=== PATIENT | male | born 1935 | race Caucasian/White ===

== ENCOUNTER 2018-04-22 00:03 | Emergency (ER) | payer MEDICARE | END 2018-04-22 01:05 | disposition home or self-care (01) | LOC: M ED 00:03 | DX: N50.1 Vascular disorders of male genital organs (principal); N50.811 Right testicular pain; I48.91 Unspecified atrial fibrillation; E03.9 Hypothyroidism, unspecified; K21.9 Gastro-esophageal reflux disease without esophagitis; N40.0 Benign prostatic hyperplasia without lower urinary tract symptoms; Z79.899 Other long term (current) drug therapy; Z79.01 Long term (current) use of anticoagulants; Z87.891 Personal history of nicotine dependence | CPT/HCPCS: 99282 ==

== ENCOUNTER 2018-09-09 09:56 | Emergency (ER) | payer MEDICARE ==
[~2018-09-09] VITALS: Ht 167.6 cm; Wt 90.9 kg
[~2018-09-09 09:56] MED LIST: DORZ2OPD OP; FINA5TAB2 PO; GABA-1171 PO; LASI40TA9 PO; LATA5OPD OP; OMEP20CA3 PO; PRAV80TA2 PO
[2018-09-09] MEDS ORDERED: PRAV1TAB39 (10:08)
[2018-09-09] MEDS ORDERED: TENO1TAB5 (10:08)
[2018-09-09] MEDS ORDERED: DORZ2SOL5 OP (10:08)
[2018-09-09] MEDS ORDERED: COUM2.5T17 PO (10:08)
[2018-09-09] MEDS ORDERED: XALA0.007 (10:08)
[2018-09-09 10:56] VITALS: BP 110/72
== END 2018-09-09 10:57 | disposition home or self-care (01) ==
LOC: M ED 09:56
DX: M13.0 Polyarthritis, unspecified (principal); I48.91 Unspecified atrial fibrillation; K21.9 Gastro-esophageal reflux disease without esophagitis; Z79.01 Long term (current) use of anticoagulants; Z79.899 Other long term (current) drug therapy

== ENCOUNTER → 2018-09-15 | Outpatient (REF) | payer MEDICARE ==
[~2018-09-15] MED LIST changes: +COUM2.5T17 PO; +DORZ2SOL5 OP; +PRAV1TAB39; +TENO1TAB5; +XALA0.007
[2018-09-15 14:05] LABS: C REACTIVE PROTEIN QUANTITATIV 6.71 MG/DL (0.00-0.30); RHEUMATOID FACTOR QUANT < 10.0 IU/ML (<15.0)
== END ==
LOC: M LAB REF 13:42
PROVIDERS: ATTEND Internal Medicine
DX: M79.641 Pain in right hand (principal); M79.642 Pain in left hand

== ENCOUNTER 2020-01-01 13:25 | Emergency (ER) | payer MEDICARE ==
[~2020-01-01] VITALS: Ht 167.6 cm; Wt 97.4 kg
[~2020-01-01 13:25] MED LIST changes: +LATA0.0013 OP; -LATA5OPD OP; +OMEP1CAP73 PO; -OMEP20CA3 PO; -TENO1TAB5; +TENO1TAB5 PO
[2020-01-01] MEDS ORDERED: WARF-18 PO (13:39)
--- NOTE | 2020-01-01 14:34 | REP ---
Portable chest x-ray: Single view. History: Dyspnea. Comparison chest x-ray: November 03, 2015. Findings: Monitoring electrodes overlie the chest. Mild cardiomegaly is observed unchanged. Pulmonary vasculature is not increased. The lungs are well inflated and clear. The pleural angles are sharp. The thoracic aorta is calcific and somewhat tortuous. Impression: Mild cardiomegaly. Otherwise no acute disease. Electronically Signed by Benny Lujan MD 01/01/2020 02:25 P
[2020-01-01 15:06] LABS: BASO % 0.5 % (0.0-1.0); EOS # 0.2 10^3/uL (0.0-0.5); EOS % 3.1 % (0.0-3.0); HEMATOCRIT 42.6 % (42.0-52.0); HEMOGLOBIN 13.8 g/dl (13.5-17.5); LYMPH # 1.8 10^3/uL (1.5-5.0); LYMPH % 28.7 % (24.0-44.0); MEAN CORPUSCULAR HEMOGLOBIN 33.6 pg (27.0-33.0); MEAN CORPUSCULAR HGB CONC 32.4 g/dl (32.0-36.5); MEAN CORPUSCULAR VOLUME 103.6 fl (80.0-96.0); MONO # 0.6 10^3/uL (0.0-0.8); MONO % 8.6 % (0.0-5.0); NEUTROPHILS # 3.8 10^3/uL (1.5-8.5); NEUTROPHILS % 58.9 % (36.0-66.0); PLATELET COUNT, AUTOMATED 204 10^3/uL (150-450); RED BLOOD COUNT 4.11 10^6/uL (4.30-6.10); WHITE BLOOD COUNT 6.4 10^3/uL (4.0-10.0)
[2020-01-01 15:35] LABS: BLOOD UREA NITROGEN 19 MG/DL (7-18); CALCIUM LEVEL 8.6 MG/DL (8.8-10.2); CARBON DIOXIDE LEVEL 31 MEQ/L (21-32); CHLORIDE LEVEL 106 MEQ/L (98-107); CK-MB VALUE MASS 3.3 NG/ML (<3.6); CPK CREATINE PHOSPHOKINASE 181 U/L (39-308); CREATININE FOR GFR 0.79 MG/DL (0.70-1.30); GLOMERULAR FILTRATION RATE > 60.0 (>35); GLUCOSE, FASTING 83 MG/DL (70-100); MAGNESIUM LEVEL 2.2 MG/DL (1.8-2.4); MB/CK RELATIVE INDEX 1.82 (< OR =4); NT-PRO BNP 1592 PG/ML (<450); SODIUM LEVEL 137 MEQ/L (136-145); TROPONIN I < 0.02 NG/ML (< 0.10)
[2020-01-01] MEDS ORDERED: FUROSEMIDE 40MG/4ML VIAL (J1940) IV ONE (15:45)
[2020-01-01 15:47] LABS: INR 2.66; PROTHROMBIN TIME 28.2 SECONDS (11.8-14.0)
[2020-01-01 17:45] VITALS: BP 133/78
[2020-01-01] MEDS ORDERED: [UNRECOGNIZED DRUG - OTHER] EXT (18:16)
--- NOTE | 2020-01-01 20:46 | ECGEPIP ---
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
== END 2020-01-01 18:44 | disposition home or self-care (01) ==
LOC: M ED 13:25
DX: R60.9 Edema, unspecified (principal); R39.9 Unspecified symptoms and signs involving the genitourinary system; N40.1 Benign prostatic hyperplasia with lower urinary tract symptoms; E11.9 Type 2 diabetes mellitus without complications; I48.91 Unspecified atrial fibrillation; I11.9 Hypertensive heart disease without heart failure; Z79.01 Long term (current) use of anticoagulants; Z79.899 Other long term (current) drug therapy
CPT/HCPCS: 71045; 80048; 82550; 82553; 83735; 83880; 84484; 85025; 85610; 93005; 93041; 94760; 96374; 99285; J1940

== ENCOUNTER → 2021-08-24 | Outpatient (CLI) | payer MEDICARE ==
[~2021-08-24] MED LIST changes: +WARF-18 PO; +[UNRECOGNIZED DRUG - OTHER] EXT
== END ==
LOC: M WUC 11:40
PROVIDERS: ATTEND Nurse Practitioner Adult Health
DX: R06.2 Wheezing (principal)

== ENCOUNTER → 2022-06-11 | Outpatient (REF) | payer MEDICARE ==
[2022-06-11 18:00] LABS: FOLATE 14.9 NG/ML (>5.4)
== END ==
LOC: M LAB REF 16:08
PROVIDERS: ATTEND Internal Medicine
DX: R41.3 Other amnesia (principal)

== ENCOUNTER → 2023-03-26 | Outpatient (REF) | payer MEDICARE, MEDICAID | LOC: M LAB REF 16:40 | PROVIDERS: ATTEND Internal Medicine | DX: N39.0 Urinary tract infection, site not specified (principal) ==

== ENCOUNTER 2023-04-21 18:10 | Emergency (ER) | payer MEDICARE, MEDICAID ==
[~2023-04-21] VITALS: Ht 167.6 cm; Wt 84.7 kg
[2023-04-21] MEDS ORDERED: XARE20TA (18:20)
[2023-04-21 19:45] LABS: BASO % 0.4 % (0.0-1.0); EOS # 0.2 10^3/uL (0.0-0.5); EOS % 3.2 % (0.0-3.0); HEMATOCRIT 43.7 % (42.0-52.0); HEMOGLOBIN 14.8 g/dl (13.5-17.5); LYMPH # 2.3 10^3/uL (1.5-5.0); MEAN CORPUSCULAR HEMOGLOBIN 34.3 pg (27.0-33.0); MEAN CORPUSCULAR HGB CONC 33.9 g/dl (32.0-36.5); MEAN CORPUSCULAR VOLUME 101.4 fl (80.0-96.0); MONO # 0.6 10^3/uL (0.0-0.8); NEUTROPHILS # 3.9 10^3/uL (1.5-8.5); NEUTROPHILS % 55.3 % (36.0-66.0); PLATELET COUNT, AUTOMATED 308 10^3/uL (150-450); RED BLOOD COUNT 4.31 10^6/uL (4.30-6.10)
[2023-04-21] MEDS ORDERED: ISOVUE-370 76% 100ML VIAL As Ordered ONE (20:02)
[2023-04-21 20:03] LABS: INR 2.72; PROTHROMBIN TIME 28.2 SECONDS (12.5-14.5)
[2023-04-21 20:04] LABS: PARTIAL THROMBOPLASTIN TIME 49.6 SECONDS (24.8-34.2)
[2023-04-21 20:55] VITALS: BP 112/74; TEMP 97.9; O2SAT 96
[2023-04-21 21:16] LABS: ALBUMIN 3.4 G/DL (3.2-5.2); BILIRUBIN,DIRECT 0.2 MG/DL (<0.4); BILIRUBIN,TOTAL 0.7 MG/DL (0.3-1.2); TOTAL PROTEIN 6.3 G/DL (5.7-8.2)
== END 2023-04-21 21:19 | disposition home or self-care (01) ==
LOC: M ED 18:10
DX: R31.9 Hematuria, unspecified (principal); N40.0 Benign prostatic hyperplasia without lower urinary tract symptoms; Z86.79 Personal history of other diseases of the circulatory system; Z87.891 Personal history of nicotine dependence; Z79.01 Long term (current) use of anticoagulants; Z79.899 Other long term (current) drug therapy
CPT/HCPCS: 36415; 74178; 80047; 80076; 81000; 81015; 83690; 85025; 85610; 85730; 86850; 86900; 86901; 87086; 99284; Q9967

== ENCOUNTER → 2023-04-23 | Outpatient (REF) | payer MEDICARE, MEDICAID ==
[~2023-04-23] MED LIST changes: +XARE20TA
[2023-04-23 17:43] LABS: APPEARANCE, URINE HAZY (CLEAR); BACTERIA, URINE AUTO 1+ (NEGATIVE); BILIRUBIN, URINE AUTO NEGATIVE (NEGATIVE); BLOOD, URINE BLOOD 2+ (NEGATIVE); COLOR, URINE YELLOW (YELLOW); GLUCOSE, URINE (UA) AUTO NEGATIVE (NEGATIVE); KETONE, URINE AUTO NEGATIVE (NEGATIVE); LEUKOCYTE ESTERASE, URINE AUTO 2+ (NEGATIVE); MUCUS, URINE SMALL (NEGATIVE); NITRITE, URINE AUTO NEGATIVE (NEGATIVE); PROTEIN, URINE AUTO NEGATIVE (NEGATIVE); RBC, URINE AUTO 2 /HPF (0-3); SPECIFIC GRAVITY URINE AUTO 1.017 (1.002-1.035); SQUAMOUS EPITHELIAL CELL UR AU 2 /HPF (0-6); UROBILINOGEN, URINE AUTO 0.2 mg/dL (0.0-2.0); WBC, URINE AUTO 7 /HPF (0-3)
== END ==
LOC: M LAB REF 16:11
PROVIDERS: ATTEND Internal Medicine
DX: R31.0 Gross hematuria (principal)

== ENCOUNTER → 2023-04-30 | Outpatient (REF) | payer MEDICARE, MEDICAID ==
[2023-04-30 13:13] LABS: APPEARANCE, URINE CLEAR (CLEAR); BACTERIA, URINE AUTO 1+ (NEGATIVE); BILIRUBIN, URINE AUTO NEGATIVE (NEGATIVE); BLOOD, URINE BLOOD 1+ (NEGATIVE); COLOR, URINE YELLOW (YELLOW); GLUCOSE, URINE (UA) AUTO NEGATIVE (NEGATIVE); KETONE, URINE AUTO NEGATIVE (NEGATIVE); LEUKOCYTE ESTERASE, URINE AUTO 3+ (NEGATIVE); NITRITE, URINE AUTO NEGATIVE (NEGATIVE); PROTEIN, URINE AUTO NEGATIVE (NEGATIVE); RBC, URINE AUTO 5 /HPF (0-3); SPECIFIC GRAVITY URINE AUTO 1.016 (1.002-1.035); SQUAMOUS EPITHELIAL CELL UR AU 0 /HPF (0-6); UROBILINOGEN, URINE AUTO 0.2 mg/dL (0.0-2.0); WBC, URINE AUTO 22 /HPF (0-3)
== END ==
LOC: M LAB REF 12:31
PROVIDERS: ATTEND Internal Medicine
DX: R31.0 Gross hematuria (principal)

== ENCOUNTER → 2023-05-06 | Outpatient (REF) | payer MEDICARE, MEDICAID ==
[2023-05-06 17:59] LABS: APPEARANCE, URINE CLEAR (CLEAR); BACTERIA, URINE AUTO NEGATIVE (NEGATIVE); BILIRUBIN, URINE AUTO NEGATIVE (NEGATIVE); BLOOD, URINE BLOOD 1+ (NEGATIVE); COLOR, URINE STRAW (YELLOW); GLUCOSE, URINE (UA) AUTO NEGATIVE (NEGATIVE); KETONE, URINE AUTO NEGATIVE (NEGATIVE); LEUKOCYTE ESTERASE, URINE AUTO 1+ (NEGATIVE); MUCUS, URINE SMALL (NEGATIVE); NITRITE, URINE AUTO NEGATIVE (NEGATIVE); PROTEIN, URINE AUTO NEGATIVE (NEGATIVE); RBC, URINE AUTO 1 /HPF (0-3); SQUAMOUS EPITHELIAL CELL UR AU 0 /HPF (0-6); UROBILINOGEN, URINE AUTO 0.2 mg/dL (0.0-2.0); WBC, URINE AUTO 2 /HPF (0-3)
== END ==
LOC: M SMT 16:53
PROVIDERS: ATTEND Nurse Practitioner Family
DX: R31.0 Gross hematuria (principal)

== ENCOUNTER → 2023-05-07 | Outpatient (REF) | payer MEDICARE, MEDICAID ==
[2023-05-07 13:26] LABS: APPEARANCE, URINE HAZY (CLEAR); BACTERIA, URINE AUTO NEGATIVE (NEGATIVE); BILIRUBIN, URINE AUTO NEGATIVE (NEGATIVE); BLOOD, URINE BLOOD NEGATIVE (NEGATIVE); COLOR, URINE YELLOW (YELLOW); GLUCOSE, URINE (UA) AUTO NEGATIVE (NEGATIVE); KETONE, URINE AUTO NEGATIVE (NEGATIVE); LEUKOCYTE ESTERASE, URINE AUTO 2+ (NEGATIVE); MUCUS, URINE SMALL (NEGATIVE); NITRITE, URINE AUTO NEGATIVE (NEGATIVE); PROTEIN, URINE AUTO 1+ mg/dL (NEGATIVE); RBC, URINE AUTO 1 /HPF (0-3); SPECIFIC GRAVITY URINE AUTO 1.021 (1.002-1.035); SQUAMOUS EPITHELIAL CELL UR AU 2 /HPF (0-6); UROBILINOGEN, URINE AUTO 0.2 mg/dL (0.0-2.0); WBC, URINE AUTO 29 /HPF (0-3)
== END ==
LOC: M LAB REF 12:32
PROVIDERS: ATTEND Internal Medicine
DX: R31.0 Gross hematuria (principal)

== ENCOUNTER → 2023-05-29 | Outpatient (REF) | payer MEDICARE, MEDICAID ==
[2023-05-29 18:08] LABS: APPEARANCE, URINE HAZY (CLEAR); BACTERIA, URINE AUTO NEGATIVE (NEGATIVE); BILIRUBIN, URINE AUTO NEGATIVE (NEGATIVE); BLOOD, URINE BLOOD 1+ (NEGATIVE); COLOR, URINE YELLOW (YELLOW); GLUCOSE, URINE (UA) AUTO NEGATIVE (NEGATIVE); KETONE, URINE AUTO NEGATIVE (NEGATIVE); LEUKOCYTE ESTERASE, URINE AUTO 3+ (NEGATIVE); MUCUS, URINE SMALL (NEGATIVE); NITRITE, URINE AUTO NEGATIVE (NEGATIVE); PROTEIN, URINE AUTO NEGATIVE (NEGATIVE); RBC, URINE AUTO 1 /HPF (0-3); SPECIFIC GRAVITY URINE AUTO 1.018 (1.002-1.035); SQUAMOUS EPITHELIAL CELL UR AU 1 /HPF (0-6); UROBILINOGEN, URINE AUTO 0.2 mg/dL (0.0-2.0); WBC, URINE AUTO 23 /HPF (0-3)
== END ==
LOC: M LABSMT 16:08
PROVIDERS: ATTEND Urology
DX: R31.0 Gross hematuria (principal)

== ENCOUNTER 2024-04-04 14:41 | Inpatient (IN) | payer MEDICARE, MEDICAID ==
[~2024-04-04] VITALS: Ht 167.6 cm; Wt 75.9 kg
[~2024-04-04 14:41] MED LIST changes: -XARE20TA; +XARE20TA PO
[2024-04-04] MEDS ORDERED: MYRB50TA PO (14:52)
[2024-04-04 18:26] LABS: BASO % 0.3 % (0.0-1.0); EOS % 0.4 % (0.0-3.0); LYMPH # 1.1 10^3/uL (1.5-5.0); MEAN CORPUSCULAR HEMOGLOBIN 34.1 pg (27.0-33.0); MEAN CORPUSCULAR HGB CONC 33.3 g/dl (32.0-36.5); MEAN CORPUSCULAR VOLUME 102.3 fl (80.0-96.0); MONO # 0.5 10^3/uL (0.0-0.8); MONO % 5.4 % (2.0-8.0); NEUTROPHILS # 7.4 10^3/uL (1.5-8.5); NEUTROPHILS % 81.5 % (36.0-66.0); PLATELET COUNT, AUTOMATED 223 10^3/uL (150-450); RED BLOOD COUNT 3.52 10^6/uL (4.30-6.10); WHITE BLOOD COUNT 9.1 10^3/uL (4.0-10.0)
[2024-04-04] MEDS: MORPHINE 10 MG/ML 1ML VIAL IV ONE (18:29)
[2024-04-04] MEDS ORDERED: XALA0.007 OU (18:37)
[2024-04-04] MEDS ORDERED: DORZ2SOL5 OU (18:37)
[2024-04-04] MEDS ORDERED: VENTAER INH (18:37)
[2024-04-04] MEDS ORDERED: PRAV20TA2 PO (18:38)
[2024-04-04 18:40] LABS: INR 3.19; PARTIAL THROMBOPLASTIN TIME 49.2 SECONDS (24.8-34.2); PROTHROMBIN TIME 31.5 SECONDS (12.5-14.5)
[2024-04-04] MEDS ORDERED: HOME MED LIST COMPLETE! XX SCH (18:40)
[2024-04-04 18:56] LABS: ALBUMIN 3.3 G/DL (3.2-5.2); ALKALINE PHOSPHATASE 45 U/L (46-116); ALT/SGPT 11 U/L (7.0-40); AST/SGOT 18 U/L (<34); BILIRUBIN,DIRECT 0.3 MG/DL (<0.4); BILIRUBIN,TOTAL 1.1 MG/DL (0.3-1.2); BLOOD UREA NITROGEN 20 MG/DL (9-23); CALCIUM LEVEL 9.2 MG/DL (8.3-10.6); CARBON DIOXIDE LEVEL 28 MMOL/L (20-31); CHLORIDE LEVEL 104 MMOL/L (98-107); CREATININE FOR GFR 0.81 MG/DL (0.70-1.30); GLOMERULAR FILTRATION RATE > 60.0 (>35); GLUCOSE, FASTING 112 MG/DL (74-106); POTASSIUM SERUM 3.7 MMOL/L (3.5-5.1); SODIUM LEVEL 139 MMOL/L (136-145); TOTAL PROTEIN 6.2 G/DL (5.7-8.2)
[2024-04-04] MEDS ORDERED: PERC5TAB12 PO (20:50)
[2024-04-04] MEDS ORDERED: PRED20TA PO (20:52)
[2024-04-04] MEDS ORDERED: TIZA4CAP PO (20:53)
[2024-04-04 21:38] VITALS: BP 100/65; TEMP 97.3; O2SAT 97
[2024-04-04] MEDS: MORPHINE 4 MG/ML 1ML VIAL IV PRN (23:07)
[2024-04-05 04:30] VITALS: BP 98/64; TEMP 97.3; O2SAT 96
[2024-04-05] MEDS: ACETAMINOPHEN 500 MG TAB PO PRN (04:35)
[2024-04-05 06:01] LABS: HEMOGLOBIN 11.2 g/dl (13.5-17.5); MEAN CORPUSCULAR HEMOGLOBIN 33.7 pg (27.0-33.0); MEAN CORPUSCULAR HGB CONC 32.9 g/dl (32.0-36.5); MEAN CORPUSCULAR VOLUME 102.4 fl (80.0-96.0); PLATELET COUNT, AUTOMATED 212 10^3/uL (150-450); RED BLOOD COUNT 3.32 10^6/uL (4.30-6.10); WHITE BLOOD COUNT 7.1 10^3/uL (4.0-10.0)
[2024-04-05 06:16] LABS: BLOOD UREA NITROGEN 21 MG/DL (9-23); CALCIUM LEVEL 8.9 MG/DL (8.3-10.6); CARBON DIOXIDE LEVEL 33 MMOL/L (20-31); CHLORIDE LEVEL 105 MMOL/L (98-107); CREATININE FOR GFR 0.97 MG/DL (0.70-1.30); GLOMERULAR FILTRATION RATE > 60.0 (>35); GLUCOSE, FASTING 106 MG/DL (74-106); SODIUM LEVEL 141 MMOL/L (136-145)
[2024-04-05] MEDS: atenoloL 50 MG TAB PO SCH (09:00)
[2024-04-05] MEDS ORDERED: ALBUTEROL 90 MCG/ACT 8GM HFA INHALER INH PRN (09:20)
[2024-04-05] MEDS: FINASTERIDE 5MG TAB PO SCH (10:01)
[2024-04-05] MEDS: LATANOPROST 0.005% OPHTH SOLN 2.5 ML OU SCH (10:01)
[2024-04-05] MEDS: FUROSEMIDE 40 MG TAB PO SCH (10:01)
[2024-04-05] MEDS: PRAVASTATIN 20 MG TAB PO SCH (10:01)
[2024-04-05] MEDS: OMEPRAZOLE 20MG CAP PO SCH (10:01)
[2024-04-05] MEDS: COSOPT OCUMETER PLUS 10ML (DORZOLAMIDE/TIMOLOL) OU SCH (10:02)
[2024-04-05 12:00] VITALS: BP 92/53; TEMP 97.5; O2SAT 96
[2024-04-05 20:00] VITALS: BP 113/68; TEMP 97.3; O2SAT 97
[2024-04-06 04:00] VITALS: BP 94/62; TEMP 97.3; O2SAT 98
[2024-04-06] MEDS: NS 1,000 ML IV SCH (06:52)
[2024-04-06 07:33] LABS: BASO % 0.4 % (0.0-1.0); EOS # 0.1 10^3/uL (0.0-0.5); EOS % 1.9 % (0.0-3.0); HEMATOCRIT 33.3 % (42.0-52.0); HEMOGLOBIN 10.9 g/dl (13.5-17.5); LYMPH # 1.7 10^3/uL (1.5-5.0); LYMPH % 25.1 % (24.0-44.0); MEAN CORPUSCULAR HEMOGLOBIN 33.5 pg (27.0-33.0); MEAN CORPUSCULAR HGB CONC 32.7 g/dl (32.0-36.5); MEAN CORPUSCULAR VOLUME 102.5 fl (80.0-96.0); MONO # 0.7 10^3/uL (0.0-0.8); MONO % 10.1 % (2.0-8.0); NEUTROPHILS # 4.2 10^3/uL (1.5-8.5); NEUTROPHILS % 62.4 % (36.0-66.0); PLATELET COUNT, AUTOMATED 221 10^3/uL (150-450); RED BLOOD COUNT 3.25 10^6/uL (4.30-6.10); WHITE BLOOD COUNT 6.7 10^3/uL (4.0-10.0)
[2024-04-06 07:49] LABS: BLOOD UREA NITROGEN 23 MG/DL (9-23); CALCIUM LEVEL 9.2 MG/DL (8.3-10.6); CARBON DIOXIDE LEVEL 30 MMOL/L (20-31); CHLORIDE LEVEL 108 MMOL/L (98-107); CREATININE FOR GFR 0.85 MG/DL (0.70-1.30); GLOMERULAR FILTRATION RATE > 60.0 (>35); GLUCOSE, FASTING 95 MG/DL (74-106); POTASSIUM SERUM 4.1 MMOL/L (3.5-5.1); SODIUM LEVEL 142 MMOL/L (136-145)
[2024-04-06 12:00] VITALS: BP 106/64; TEMP 97.9; O2SAT 95
[2024-04-06 12:00] LABS: INR 1.5; PROTHROMBIN TIME 17.6 SECONDS (12.5-14.5)
[2024-04-06 20:00] VITALS: BP 114/71; TEMP 97.7; O2SAT 96
[2024-04-07] VITALS (9 sets, daily range): BP systolic 91–117; BP diastolic 59–75; TEMP 97–99; O2SAT 85–98
[2024-04-07] MEDS: DIGOXIN INJ 0.5 MG/2 ML AMP IV ONE (08:59)
[2024-04-07] MEDS ORDERED: fentaNYL 100 MCG/2 ML INJECTION As Ordered ONE (12:43)
[2024-04-07] MEDS ORDERED: propofoL 200 MG/20 ML VIAL As Ordered ONE (12:44)
[2024-04-07] MEDS ORDERED: LIDOCAINE 2% 100MG/5ML SDV (FOR ANES.) As Ordered ONE (12:44)
[2024-04-07] MEDS ORDERED: PHENYLephrine 500MCG 5ML (100MCG/ML) SYRINGE As Ordered ONE (12:46)
[2024-04-07] MEDS ORDERED: VASOPRESSIN INJ 20UNITS/ML 1ML VIAL As Ordered ONE (13:24)
[2024-04-07] MEDS: ceFAZolin 2 GM/D5W 50 ML IV BAG As Ordered ONE (13:27)
[2024-04-07] MEDS ORDERED: ACETAMINOPHEN 1000MG 100ML IV BAG As Ordered ONE (13:33)
[2024-04-07] MEDS: LR 1,000 ML IV SCH (14:05)
[2024-04-07] MEDS ORDERED: fentaNYL 100 MCG/2 ML INJECTION IV PRN (14:05)
[2024-04-07] MEDS ORDERED: HYDROMORPHONE HCL 0.5 MG/ 0.5 ML SYRINGE IV PRN (14:05)
[2024-04-07] MEDS ORDERED: ONDANSETRON 4MG 2ML VIAL IV PRN (14:05)
[2024-04-07] MEDS ORDERED: oxyCODONE 5MG TAB PO PRN (14:05)
[2024-04-07] MEDS: ENOXAPARIN 40MG/0.4ML SYRINGE (J1650 PER 10MG) SC SCH (20:00)
[2024-04-07] MEDS: ceFAZolin SOD 2 GM in IV 1 EA IV SCH (20:29)
[2024-04-08] VITALS: BP 99/62; TEMP 97.5; O2SAT 96
[2024-04-08 04:00] VITALS: BP 120/67; TEMP 97.3; O2SAT 97
[2024-04-08 08:15] LABS: BASO % 0.2 % (0.0-1.0); EOS # 0.3 10^3/uL (0.0-0.5); HEMATOCRIT 31.1 % (42.0-52.0); HEMOGLOBIN 10.3 g/dl (13.5-17.5); LYMPH # 1.2 10^3/uL (1.5-5.0); LYMPH % 19.3 % (24.0-44.0); MEAN CORPUSCULAR HEMOGLOBIN 34.4 pg (27.0-33.0); MEAN CORPUSCULAR HGB CONC 33.1 g/dl (32.0-36.5); MONO # 0.5 10^3/uL (0.0-0.8); MONO % 8.1 % (2.0-8.0); NEUTROPHILS # 4.3 10^3/uL (1.5-8.5); NEUTROPHILS % 68.2 % (36.0-66.0); PLATELET COUNT, AUTOMATED 219 10^3/uL (150-450); RED BLOOD COUNT 2.99 10^6/uL (4.30-6.10); WHITE BLOOD COUNT 6.3 10^3/uL (4.0-10.0)
[2024-04-08] MEDS: RIVAROXABAN 20MG TAB (XARELTO) PO SCH (08:29)
[2024-04-08] MEDS: atenoloL 50 MG TAB PO SCH (08:30)
[2024-04-08 12:00] VITALS: BP 107/66; TEMP 97.9; O2SAT 97
[2024-04-08 13:33] LABS: BLOOD UREA NITROGEN 18 MG/DL (9-23); CALCIUM LEVEL 8.8 MG/DL (8.3-10.6); CARBON DIOXIDE LEVEL 28 MMOL/L (20-31); CHLORIDE LEVEL 109 MMOL/L (98-107); CREATININE FOR GFR 0.71 MG/DL (0.70-1.30); GLOMERULAR FILTRATION RATE > 60.0 (>35); GLUCOSE, FASTING 96 MG/DL (74-106); POTASSIUM SERUM 4.2 MMOL/L (3.5-5.1); SODIUM LEVEL 141 MMOL/L (136-145)
[2024-04-08] MEDS ORDERED: MIRALAX *UNIT DOSE* 17GM PACKET PO PRN (14:35)
[2024-04-08] MEDS ORDERED: PERCOCET 5MG/325MG TAB PO PRN (14:35)
[2024-04-08] MEDS ORDERED: SENNA 8.6 MG TAB (SENOKOT) PO PRN (14:35)
[2024-04-08] MEDS: atenoloL 50 MG TAB PO ONE (15:54)
[2024-04-08 20:54] VITALS: BP 101/63; TEMP 97.9; O2SAT 90
[2024-04-09 06:22] VITALS: BP 102/62; TEMP 97.5; O2SAT 95
[2024-04-09 07:45] LABS: BASO % 0.4 % (0.0-1.0); EOS # 0.2 10^3/uL (0.0-0.5); EOS % 3.7 % (0.0-3.0); HEMATOCRIT 29.7 % (42.0-52.0); HEMOGLOBIN 9.7 g/dl (13.5-17.5); LYMPH # 1.4 10^3/uL (1.5-5.0); LYMPH % 23.8 % (24.0-44.0); MEAN CORPUSCULAR HEMOGLOBIN 33.7 pg (27.0-33.0); MEAN CORPUSCULAR HGB CONC 32.7 g/dl (32.0-36.5); MEAN CORPUSCULAR VOLUME 103.1 fl (80.0-96.0); MONO # 0.5 10^3/uL (0.0-0.8); MONO % 8.5 % (2.0-8.0); NEUTROPHILS # 3.6 10^3/uL (1.5-8.5); NEUTROPHILS % 63.2 % (36.0-66.0); PLATELET COUNT, AUTOMATED 225 10^3/uL (150-450); RED BLOOD COUNT 2.88 10^6/uL (4.30-6.10); WHITE BLOOD COUNT 5.7 10^3/uL (4.0-10.0)
[2024-04-09 08:14] LABS: BLOOD UREA NITROGEN 16 MG/DL (9-23); CALCIUM LEVEL 8.6 MG/DL (8.3-10.6); CARBON DIOXIDE LEVEL 27 MMOL/L (20-31); CHLORIDE LEVEL 110 MMOL/L (98-107); CREATININE FOR GFR 0.72 MG/DL (0.70-1.30); GLOMERULAR FILTRATION RATE > 60.0 (>35); GLUCOSE, FASTING 89 MG/DL (74-106); POTASSIUM SERUM 3.9 MMOL/L (3.5-5.1); SODIUM LEVEL 140 MMOL/L (136-145)
[2024-04-09 08:45] VITALS: BP 88/52
[2024-04-09 08:52] VITALS: BP 88/52
[2024-04-09] MEDS: atenoloL 50 MG TAB PO SCH (08:52)
[2024-04-09] MEDS: DIGOXIN 0.25 MG TAB PO STA (11:04)
[2024-04-09 12:00] VITALS: BP 113/62; TEMP 97.5; O2SAT 95
[2024-04-09] MEDS: NS 1,000 ML IV ONE (12:35)
[2024-04-09 20:34] VITALS: BP 109/62; TEMP 97.2; O2SAT 98
[2024-04-10 04:00] VITALS: BP 107/67; TEMP 97.2; O2SAT 96
[2024-04-10 05:45] LABS: HEMATOCRIT 28.6 % (42.0-52.0); HEMOGLOBIN 9.4 g/dl (13.5-17.5); MEAN CORPUSCULAR HEMOGLOBIN 34.1 pg (27.0-33.0); MEAN CORPUSCULAR HGB CONC 32.9 g/dl (32.0-36.5); MEAN CORPUSCULAR VOLUME 103.6 fl (80.0-96.0); PLATELET COUNT, AUTOMATED 215 10^3/uL (150-450); RED BLOOD COUNT 2.76 10^6/uL (4.30-6.10); WHITE BLOOD COUNT 5.2 10^3/uL (4.0-10.0)
[2024-04-10] MEDS: DIGOXIN 0.25 MG TAB PO STA (09:05)
[2024-04-10 09:25] VITALS: BP 108/69
[2024-04-10] MEDS ORDERED: DIGO0.253 PO (11:33)
[2024-04-10] MEDS ORDERED: FERR324T2 PO (11:33)
[2024-04-10 12:15] VITALS: TEMP 97.3; O2SAT 96
[2024-04-10 12:23] VITALS: BP 98/56
[2024-04-11] MEDS ORDERED: DIGOXIN 0.25 MG TAB PO SCH (09:00)
== END 2024-04-10 14:52 | disposition home health service (06) | DRG 481 ==
LOC: M ED 14:41 → EDBD 17:35 → M ED INP 17:35 → M MSPAV 21:28
PROVIDERS: ADMIT Internal Medicine; ATTEND Internal Medicine
PROC: 0QS734Z Reposition Left Upper Femur with Internal Fixation Device, Percutaneous Approach (ICD-10-PCS; principal; 2024-04-07 12:30)
DX: S72.145A Nondisplaced intertrochanteric fracture of left femur, initial encounter for closed fracture (principal); D62 Acute posthemorrhagic anemia; I10 Essential (primary) hypertension; J45.909 Unspecified asthma, uncomplicated; E78.5 Hyperlipidemia, unspecified; N40.0 Benign prostatic hyperplasia without lower urinary tract symptoms; K21.9 Gastro-esophageal reflux disease without esophagitis; I48.91 Unspecified atrial fibrillation; Z79.01 Long term (current) use of anticoagulants; Z79.899 Other long term (current) drug therapy; W18.30XA Fall on same level, unspecified, initial encounter; Y92.009 Unspecified place in unspecified non-institutional (private) residence as the place of occurrence of the external cause

== ENCOUNTER → 2024-04-16 | Outpatient (REF) | payer MEDICARE, MEDICAID ==
[~2024-04-16] MED LIST changes: +DIGO0.253 PO; +DORZ2SOL5 OU; +FERR324T2 PO; +MYRB50TA PO; +PERC5TAB12 PO; +PRAV20TA2 PO; +PRED20TA PO; +TIZA4CAP PO; +VENTAER INH; +XALA0.007 OU
== END ==
LOC: M LAB REF 16:37
PROVIDERS: ATTEND Internal Medicine
DX: I48.21 Permanent atrial fibrillation (principal)

== ENCOUNTER → 2024-04-23 | Outpatient (CLI) | payer MEDICARE, MEDICAID | LOC: M SOG 07:22 | PROVIDERS: ATTEND Physician Assistant | DX: S72.002A Fracture of unspecified part of neck of left femur, initial encounter for closed fracture (principal); Z47.89 Encounter for other orthopedic aftercare; Y93.9 Activity, unspecified; Y92.9 Unspecified place or not applicable ==

== ENCOUNTER → 2024-04-30 | Outpatient (REF) | payer MEDICARE, MEDICAID | LOC: M LAB REF 13:59 | PROVIDERS: ATTEND Internal Medicine | DX: I48.21 Permanent atrial fibrillation (principal); I50.32 Chronic diastolic (congestive) heart failure; I11.0 Hypertensive heart disease with heart failure ==

== ENCOUNTER → 2024-05-29 | Outpatient (CLI) | payer MEDICARE, MEDICAID | LOC: M SOG 07:49 | PROVIDERS: ATTEND Physician Assistant | DX: S72.002D Fracture of unspecified part of neck of left femur, subsequent encounter for closed fracture with routine healing (principal); Z47.89 Encounter for other orthopedic aftercare ==

== ENCOUNTER → 2024-07-06 | Outpatient (REF) | payer MEDICARE, MEDICAID ==
[2024-07-06 13:50] LABS: DIGOXIN LEVEL 1.4 NG/ML (0.8-2.0); PERCENT SATURATION 25.2 % (19.7-50.0)
== END ==
LOC: M LAB REF 12:55
PROVIDERS: ATTEND Internal Medicine
DX: D62 Acute posthemorrhagic anemia (principal); I48.21 Permanent atrial fibrillation

== ENCOUNTER → 2024-11-03 | Outpatient (REF) | payer MEDICARE, MEDICAID | LOC: M LAB REF 11:56 | PROVIDERS: ATTEND Internal Medicine | DX: I48.21 Permanent atrial fibrillation (principal) ==

== ENCOUNTER 2025-01-20 14:23 | Inpatient (IN) | payer MEDICARE, MEDICAID ==
[~2025-01-20] VITALS: Ht 167.6 cm; Wt 73.4 kg
[~2025-01-20 14:23] MED LIST changes: -PRAV20TA2 PO; +PRAV20TA78 PO; -PRAV80TA2 PO; +PRAV80TA75 PO
[2025-01-20] MEDS ORDERED: ACET-683 PO (14:46)
[2025-01-20] MEDS ORDERED: DIGO0.123 PO (14:46)
[2025-01-20] MEDS: ACETAMINOPHEN 325 MG TAB PO ONE (17:28)
[2025-01-20 18:25] VITALS: O2SAT 98
[2025-01-20 19:08] LABS: PLATELET COUNT, AUTOMATED 235 10^3/uL (150-450)
[2025-01-20 19:40] LABS: CALCIUM LEVEL 8.9 MG/DL (8.3-10.6); CARBON DIOXIDE LEVEL 26.0 MMOL/L (20-31); CHLORIDE LEVEL 102.0 MMOL/L (98-107); CREATININE FOR GFR 0.74 MG/DL (0.70-1.30); GLOMERULAR FILTRATION RATE 86.6 (>35); POTASSIUM SERUM 4.4 MMOL/L (3.5-5.1); SODIUM LEVEL 140.0 MMOL/L (136-145)
[2025-01-20] MEDS ORDERED: MOM 30 ML SUSPENSION UDC PO PRN (21:55)
[2025-01-20] MEDS ORDERED: DORZ2SOL4 OU (21:55)
[2025-01-20] MEDS ORDERED: MAALOX 30 ML SUSP *UDC PO PRN (21:55)
[2025-01-20] MEDS ORDERED: HOME MED LIST COMPLETE! XX SCH (22:00)
[2025-01-20] MEDS: LIDOCAINE 5% PATCH TD SCH (23:13)
[2025-01-20] MEDS: ACETAMINOPHEN 500 MG TAB PO SCH (23:14)
[2025-01-20] MEDS: DOCUSATE SODIUM 100 MG CAPSULE PO SCH (23:15)
[2025-01-21 01:07] LABS: ALT/SGPT 12.0 U/L (7.0-40); AST/SGOT 17.0 U/L (<34); C REACTIVE PROTEIN QUANTITATIV 0.89 MG/DL (<1.0); MAGNESIUM LEVEL 1.8 MG/DL (1.8-2.4)
[2025-01-21 01:13] LABS: INR 2.11
[2025-01-21 05:50] LABS: PLATELET COUNT, AUTOMATED 204 10^3/uL (150-450)
[2025-01-21 06:03] LABS: ALT/SGPT 10.0 U/L (7.0-40); AST/SGOT 13.0 U/L (<34); CALCIUM LEVEL 8.7 MG/DL (8.3-10.6); CARBON DIOXIDE LEVEL 28.0 MMOL/L (20-31); CHLORIDE LEVEL 106.0 MMOL/L (98-107); CREATININE FOR GFR 0.69 MG/DL (0.70-1.30); GLOMERULAR FILTRATION RATE 88.5 (>35); MAGNESIUM LEVEL 1.8 MG/DL (1.8-2.4); POTASSIUM SERUM 3.4 MMOL/L (3.5-5.1); SODIUM LEVEL 145.0 MMOL/L (136-145)
[2025-01-21 08:59] VITALS: BP 116/80; TEMP 97.9; O2SAT 97
[2025-01-21 11:46] VITALS: BP 109/70; TEMP 97.7; O2SAT 96
[2025-01-21 16:38] VITALS: BP 110/57; TEMP 98.5; O2SAT 96
[2025-01-21 21:35] VITALS: BP 121/76; TEMP 97.5; O2SAT 97
[2025-01-22 03:41] VITALS: BP 98/59; TEMP 97.5; O2SAT 97
[2025-01-22 09:05] VITALS: BP 104/63; TEMP 97.3; O2SAT 95
[2025-01-22] MEDS: MIDODRINE 5 MG TAB PO SCH (12:00)
[2025-01-22 12:08] VITALS: BP 95/50; TEMP 97.5; O2SAT 95
[2025-01-22] MEDS ORDERED: IPRATROPIUM 0.5 MG/2.5 ML (0.02%) SOLN NEB INH PRN (12:25)
[2025-01-22] MEDS ORDERED: LEVALBUTEROL 1.25 MG 0.5ML CONCENTRATE NEB INH PRN (12:25)
[2025-01-22] MEDS: FUROSEMIDE 40 MG TAB PO SCH (12:25)
[2025-01-22] MEDS: DORZOLAMIDE 2% OPHTH SOLN 10 ML BTL OU SCH (12:25)
[2025-01-22] MEDS: IPRATROPIUM 0.5 MG/2.5 ML (0.02%) SOLN NEB INH ONE (12:49)
[2025-01-22] MEDS: LEVALBUTEROL 1.25 MG 0.5ML CONCENTRATE NEB NEB ONE (12:49)
[2025-01-22] MEDS: POTASSIUM CHLORIDE 10MEQ SR TABLET PO ONE (13:53)
[2025-01-22] MEDS: PRAVASTATIN 20 MG TAB PO SCH (14:13)
[2025-01-22] MEDS: OMEPRAZOLE 20MG CAP PO SCH (14:13)
[2025-01-22] MEDS: DIGOXIN 0.125 MG TAB PO SCH (14:13)
[2025-01-22] MEDS: FINASTERIDE 5 MG TAB PO SCH (14:13)
[2025-01-22] MEDS: IPRATROPIUM 0.5 MG/ALBUTEROL 2.5 MG INH SOL UD 3 ML NEB ONE (15:04)
[2025-01-22] MEDS: NS (Normal Saline) 0.9% 1,000 ML IV SCH (19:25)
[2025-01-22 20:00] VITALS: BP 104/54; TEMP 97.9; O2SAT 96
[2025-01-22] MEDS: LATANOPROST 0.005% OPHTH SOLN 2.5 ML OU SCH (21:20)
[2025-01-22 22:49] VITALS: BP 104/54; TEMP 97.9; O2SAT 96
[2025-01-23] VITALS (7 sets, daily range): BP systolic 102–121; BP diastolic 57–75; TEMP 97–97.9; O2SAT 96–99
[2025-01-23 11:03] LABS: PLATELET COUNT, AUTOMATED 227 10^3/uL (150-450)
[2025-01-23 11:41] LABS: CALCIUM LEVEL 8.6 MG/DL (8.3-10.6); CARBON DIOXIDE LEVEL 27.0 MMOL/L (20-31); CHLORIDE LEVEL 107.0 MMOL/L (98-107); CREATININE FOR GFR 0.79 MG/DL (0.70-1.30); GLOMERULAR FILTRATION RATE 84.9 (>35); POTASSIUM SERUM 4.4 MMOL/L (3.5-5.1); SODIUM LEVEL 142.0 MMOL/L (136-145)
[2025-01-24 04:05] VITALS: BP 110/73; TEMP 97.7; O2SAT 97
[2025-01-24 05:41] LABS: PLATELET COUNT, AUTOMATED 211 10^3/uL (150-450)
[2025-01-24 06:08] LABS: CALCIUM LEVEL 8.5 MG/DL (8.3-10.6); CARBON DIOXIDE LEVEL 28.0 MMOL/L (20-31); CHLORIDE LEVEL 106.0 MMOL/L (98-107); CREATININE FOR GFR 0.72 MG/DL (0.70-1.30); GLOMERULAR FILTRATION RATE 87.3 (>35); POTASSIUM SERUM 4.2 MMOL/L (3.5-5.1); SODIUM LEVEL 142.0 MMOL/L (136-145)
[2025-01-24 08:00] VITALS: BP 116/73; TEMP 97.3; O2SAT 97
== END 2025-01-24 13:31 | disposition home or self-care (01) | DRG 605 ==
LOC: M ED 14:23 → M ED INP 14:24 → M MSPAV 01-21 21:30 → OBSVTOIN 01-22 14:26
PROVIDERS: ADMIT Family Medicine; ATTEND Family Medicine
DX: S70.11XA Contusion of right thigh, initial encounter (principal); D62 Acute posthemorrhagic anemia; I50.32 Chronic diastolic (congestive) heart failure; M16.11 Unilateral primary osteoarthritis, right hip; I48.91 Unspecified atrial fibrillation; Z79.01 Long term (current) use of anticoagulants; J45.909 Unspecified asthma, uncomplicated; E78.5 Hyperlipidemia, unspecified; K21.9 Gastro-esophageal reflux disease without esophagitis; N40.0 Benign prostatic hyperplasia without lower urinary tract symptoms; G47.33 Obstructive sleep apnea (adult) (pediatric); W18.09XA Striking against other object with subsequent fall, initial encounter; Y92.009 Unspecified place in unspecified non-institutional (private) residence as the place of occurrence of the external cause; Z79.899 Other long term (current) drug therapy

== ENCOUNTER → 2025-02-26 | Outpatient (REF) | payer MEDICARE, MEDICAID ==
[~2025-02-26] MED LIST changes: +ACET-683 PO; +DIGO0.123 PO; +DORZ2SOL4 OU
== END ==
LOC: M LAB REF 12:06
PROVIDERS: ATTEND Internal Medicine
DX: I48.21 Permanent atrial fibrillation (principal)